=== PATIENT | male | born 1960 | race African-American/Black ===

== ENCOUNTER 2018-10-14 15:44 | Emergency (ER) | payer MEDICAID ==
[~2018-10-14] VITALS: Ht 190.5 cm; Wt 111.3 kg
[2018-10-14 15:58] VITALS: BP 146/78
== END 2018-10-14 21:40 | disposition home or self-care (01) ==
LOC: ED 20:16
DX: K59.00 Constipation, unspecified (principal); N30.00 Acute cystitis without hematuria; I10 Essential (primary) hypertension
CPT/HCPCS: 36415; 74021; 80048; 81001; 82040; 85025; 87086; 99284